=== PATIENT | female | born 2000 | race Hispanic/Latino ===

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

== ENCOUNTER 2019-10-24 18:30 | Emergency (ER) | payer OTHER ==
[~2019-10-24] VITALS: Ht 162.6 cm; Wt 71.6 kg
[2019-10-24] MEDS ORDERED: LOES1TAB12 PO (18:35)
[2019-10-24] MEDS ORDERED: ONDANSETRON 4MG/2ML VIAL (J2405) IV ONE (19:00)
[2019-10-24] MEDS ORDERED: NS 1,000 ML IV ONE (19:00)
[2019-10-24 19:15] LABS: BASO % 0.3 % (0.0-1.0); EOS # 0.1 10^3/uL (0.0-0.5); EOS % 1.5 % (0.0-3.0); HEMATOCRIT 38.5 % (36.0-47.0); HEMOGLOBIN 13.2 g/dl (12.0-15.5); LYMPH # 1.6 10^3/uL (1.5-5.0); LYMPH % 16.7 % (24.0-44.0); MEAN CORPUSCULAR HEMOGLOBIN 31.5 pg (27.0-33.0); MEAN CORPUSCULAR HGB CONC 34.3 g/dl (32.0-36.5); MEAN CORPUSCULAR VOLUME 91.9 fl (80.0-96.0); MONO # 0.5 10^3/uL (0.0-0.8); MONO % 5.6 % (0.0-5.0); NEUTROPHILS # 7.2 10^3/uL (1.5-8.5); NEUTROPHILS % 75.6 % (36.0-66.0); PLATELET COUNT, AUTOMATED 237 10^3/uL (150-450); RED BLOOD COUNT 4.19 10^6/uL (4.00-5.40); WHITE BLOOD COUNT 9.5 10^3/uL (4.0-10.0)
[2019-10-24 19:57] LABS: ALBUMIN 3.7 GM/DL (3.2-5.2); ALT/SGPT 64 U/L (12-78); BILIRUBIN,DIRECT 0.2 MG/DL (0.0-0.2); BILIRUBIN,TOTAL 0.6 MG/DL (0.2-1.0); BLOOD UREA NITROGEN 8 MG/DL (7-18); CARBON DIOXIDE LEVEL 25 MEQ/L (21-32); CHLORIDE LEVEL 103 MEQ/L (98-107); CREATININE FOR GFR 0.74 MG/DL (0.55-1.30); GLUCOSE, FASTING 99 MG/DL (70-100); HCG, SERUM QUANTITATIVE 50272 MIU/ML; LIPASE 98 U/L (73-393); POTASSIUM SERUM 3.9 MEQ/L (3.5-5.1); SODIUM LEVEL 137 MEQ/L (136-145); TOTAL PROTEIN 7.4 GM/DL (6.4-8.2)
--- NOTE | 2019-10-24 20:38 | REPVR ---
PROCEDURE INFORMATION: Exam: US First Trimester, Transabdominal Exam date and time: 10/24/2019 8:23 PM Age: 19 years old Clinical indication: Other: Abd pain; Gestational age or lmp: 6w 2d; ; Additional info: Low abd pain, positive hcg TECHNIQUE: Imaging protocol: Real-time transabdominal obstetrical ultrasound of the maternal pelvis and a first trimester , less than 14 weeks 0 days, with image documentation. COMPARISON: No relevant prior studies available. FINDINGS: GESTATION: Gestation: Single intrauterine gestation. Heart rate: heart rate of 114 bpm. Placenta: Unremarkable. No subchorionic bleed. Amniotic fluid: Amniotic and coelomic fluid are normal for gestational age. BIOMETRY: Estimated gestational age: Estimated gestational age of 6 weeks and 2 days. The CRL measures 5 mm. MATERNAL: Uterus: Unremarkable. Cervix: Unremarkable. Right adnexa: Right ovarian cyst likely a corpus luteal cyst. Right ovary measures 3x 3.9 x 2.6 cm. Normal vascular flow to the right ovary. Left adnexa: Unremarkable. Intraperitoneal: No intraperitoneal free fluid. IMPRESSION: Single intrauterine gestation with positive heart rate . Estimated gestational age of 6 weeks and 2 days. Electronically signed by: Noble Amaya On 10/24/2019 20:37:38 PM
[2019-10-24] MEDS ORDERED: TAMSULOSIN 0.4 MG CAP PO ONE (21:30)
[2019-10-24 21:39] VITALS: BP 106/65
== END 2019-10-24 21:45 | disposition home or self-care (01) ==
LOC: M ED 18:30
DX: Z32.01 Encounter for pregnancy test, result positive (principal); O26.891 Other specified pregnancy related conditions, first trimester; Z3A.01 Less than 8 weeks gestation of pregnancy; Z79.3 Long term (current) use of hormonal contraceptives
CPT/HCPCS: 76801; 80048; 80076; 81001; 83690; 84702; 85025; 86901; 87086; 93976; 96361; 96374; 99284; J2405

== ENCOUNTER 2020-09-06 02:06 | Day surgery (SDC) | payer OTHER ==
[~2020-09-06] VITALS: Ht 162.6 cm; Wt 80.5 kg
[~2020-09-06 02:06] MED LIST: LOES1TAB12 PO
[2020-09-06] MEDS ORDERED: ONDANSETRON 4MG/2ML VIAL IV ONE (03:00)
--- NOTE | 2020-09-06 03:56 | REPVR ---
PROCEDURE INFORMATION: Exam: US Abdomen, Limited; Right Upper Quadrant Exam date and time: 09/06/2020 3:12 AM Age: 20 years old Clinical indication: Abdominal pain; Epigastric; Additional info: Ruq pain TECHNIQUE: Imaging protocol: US abdomen. Real time ultrasound with image documentation. Limited exam focused on the right upper quadrant. COMPARISON: No relevant prior studies available. FINDINGS: Liver: The liver demonstrates no focal defects. Gallbladder: The gallbladder demonstrates no stones and no wall thickening measuring 2 mm. There is a negative sono Lan's sign. Common bile duct: The CBD measures 3 mm. Pancreas: The pancreas is normal. Right kidney: The right kidney measures 10.5 cm and demonstrates no hydronephrosis. IMPRESSION: Negative right upper quadrant sonogram. Electronically signed by: Rocco Bone On 09/06/2020 03:55:24 AM
[2020-09-06] MEDS ORDERED: ISOVUE-370 76% 100ML VIAL As Ordered ONE (05:51)
[2020-09-06 06:23] LABS: BASO % 0.1 % (0.0-1.0); HEMATOCRIT 38.8 % (36.0-47.0); HEMOGLOBIN 12.6 g/dl (12.0-15.5); LYMPH # 1.1 10^3/uL (1.5-5.0); MEAN CORPUSCULAR HEMOGLOBIN 29.5 pg (27.0-33.0); MEAN CORPUSCULAR HGB CONC 32.5 g/dl (32.0-36.5); MEAN CORPUSCULAR VOLUME 90.9 fl (80.0-96.0); MONO # 0.4 10^3/uL (0.0-0.8); MONO % 2.3 % (0.0-5.0); NEUTROPHILS # 14.1 10^3/uL (1.5-8.5); NEUTROPHILS % 90.2 % (36.0-66.0); PLATELET COUNT, AUTOMATED 268 10^3/uL (150-450); RED BLOOD COUNT 4.27 10^6/uL (4.00-5.40); WHITE BLOOD COUNT 15.6 10^3/uL (4.0-10.0)
[2020-09-06 06:54] LABS: ALBUMIN 3.4 GM/DL (3.2-5.2); ALT/SGPT 28 U/L (12-78); BILIRUBIN,DIRECT 0.2 MG/DL (0.0-0.2); BILIRUBIN,TOTAL 0.5 MG/DL (0.2-1.0); BLOOD UREA NITROGEN 10 MG/DL (7-18); CALCIUM LEVEL 9.2 MG/DL (8.5-10.1); CARBON DIOXIDE LEVEL 30 MEQ/L (21-32); CHLORIDE LEVEL 105 MEQ/L (98-107); CREATININE FOR GFR 0.79 MG/DL (0.55-1.30); GLOMERULAR FILTRATION RATE > 60.0 (>60); GLUCOSE, FASTING 112 MG/DL (70-100); LIPASE 91 U/L (73-393); POTASSIUM SERUM 4.4 MEQ/L (3.5-5.1); SODIUM LEVEL 139 MEQ/L (136-145); TOTAL PROTEIN 7.3 GM/DL (6.4-8.2)
--- NOTE | 2020-09-06 07:38 | REPVR ---
PROCEDURE INFORMATION: Exam: CT Abdomen And Pelvis With Contrast Exam date and time: 09/06/2020 5:48 AM Age: 20 years old Clinical indication: Abdominal pain; Localized; Right lower quadrant (rlq); Additional info: Rlq ttp, R/O appy TECHNIQUE: Imaging protocol: Computed tomography of the abdomen and pelvis with contrast. Radiation optimization: All CT scans at this facility use at least one of these dose optimization techniques: automated exposure control; mA and/or kV adjustment per patient size (includes targeted exams where dose is matched to clinical indication); or iterative reconstruction. Contrast material: ISO; Contrast volume: 100 ml; Contrast route: INTRAVENOUS (IV); COMPARISON: GALLBLADDER US 09/06/2020 3:03 AM FINDINGS: Liver: Normal. No mass. Gallbladder and bile ducts: Normal. No calcified stones. No ductal dilation. Pancreas: Normal. No ductal dilation. Spleen: Normal. No splenomegaly. Adrenal glands: Normal. No mass. Kidneys and ureters: Normal. No hydronephrosis. Stomach and bowel: Unremarkable. No obstruction. No mucosal thickening. Appendix: The appendix is enlarged measuring up to 1 cm demonstrating wall thickening and hyperemia with surrounding inflammation. Intraperitoneal space: There is trace right pelvic fluid on axial image 114 either physiologic or reactive. Vasculature: Unremarkable. No abdominal aortic aneurysm. Lymph nodes: Multiple prominent right lower quadrant reactive lymph nodes are seen. Urinary bladder: Unremarkable as visualized. Reproductive: The uterus is retroverted and appear unremarkable. Bones/joints: Unremarkable. No acute fracture. Soft tissues: Unremarkable. IMPRESSION: 1. Acute appendicitis with reactive adenopathy. No evidence of perforation or abscess formation at this time. 2. Small amount of fluid in the right hemipelvis could be physiologic or reactive. Electronically signed by: Juan Gonzalez On 09/06/2020 07:37:34 AM
[2020-09-06] MEDS ORDERED: NS 1,000 ML IV ONE (07:45)
[2020-09-06] MEDS ORDERED: PIPERACILLIN/TAZOBACTAM SOD 4.5 GM in D5W MINI-BAG PLUS 50 ML IV ONE (07:45)
[2020-09-06] MEDS ORDERED: BUPIVACAINE/EPIN 0.25% 30 ML VIAL As Ordered ONE (08:14)
[2020-09-06 08:49] LABS: RSV AMPLIFICATION NEGATIVE (NEGATIVE)
[2020-09-06] MEDS ORDERED: MIDAZOLAM INJ 2MG/2ML VIAL (J2250 PER 1MG) As Ordered ONE (09:54)
[2020-09-06] MEDS ORDERED: ROCURONIUM BROMIDE 50 MG/5 ML VIAL As Ordered ONE (09:54)
[2020-09-06] MEDS ORDERED: LIDOCAINE 2% 100MG/5ML SDV (FOR ANES.) As Ordered ONE (09:54)
[2020-09-06] MEDS ORDERED: propofoL 200 MG/20 ML VIAL As Ordered ONE (09:54)
[2020-09-06] MEDS ORDERED: fentaNYL 250 MCG/5 ML INJECTION (J3010) As Ordered ONE (09:54)
[2020-09-06] MEDS ORDERED: NEOSTIGMINE 10MG/10ML VIAL (J2710 PER 0.5MG) As Ordered ONE (09:54)
[2020-09-06] MEDS ORDERED: dexameTHASONE 4 MG/ML 1ML VIAL (J1100 PER 1MG) As Ordered ONE (09:54)
[2020-09-06] MEDS ORDERED: ACETAMINOPHEN 1000MG 100ML IV BTL (OFIRMEV) (J0131 PER 10MG) As Ordered ONE (09:54)
[2020-09-06] MEDS ORDERED: GLYCOPYRROLATE INJ 0.2 MG/ML 2 ML VIAL As Ordered ONE (09:54)
[2020-09-06] MEDS ORDERED: KETOROLAC 60MG 2ML VIAL As Ordered ONE (09:54)
[2020-09-06] MEDS ORDERED: ONDANSETRON 4MG/2ML VIAL As Ordered ONE (09:54)
--- NOTE | 2020-09-06 10:21 | HPE ---
HISTORY AND PHYSICAL DATE: 09/06/20 CHIEF COMPLAINT: Abdominal pain. HISTORY OF PRESENT ILLNESS: The patient is a 20-year-old female who started with right lower quadrant abdominal pain yesterday. At first she thought that it was gas pains; however, overnight it did not improve. She came in, in the middle of the night. Work-up shows that she has an acute appendicitis therefore I was called to evaluate. She is comfortable now, her pain is controlled. No nausea or vomiting. No fevers or chills. No change in bowel movements. No recent travel or trauma to the abdomen. No other complaints. PAST MEDICAL HISTORY: Negative. PAST SURGICAL HISTORY: Negative. ALLERGIES: None. HOME MEDICATIONS: Please see Med Rec. SOCIAL HISTORY: Denies drugs, alcohol or tobacco. FAMILY HISTORY: Noncontributory. REVIEW OF SYSTEMS: Pertinent positives as per the HPI. PHYSICAL EXAMINATION: General: Patient is A&O times 3, in no acute distress. Vital signs: Temperature 97.8, pulse 104, respiratory rate 18, blood pressure 120/88, pulse ox 100% on room air. HEENT: Pupils equal, round and reactive to light and accommodation. Heart: S1 and S2 regular rate and rhythm. Lungs: Clear to auscultation bilaterally. Abdomen: Soft, slight tenderness to palpation in the right lower quadrant only, localized guarding, no rigidity. Extremities: No clubbing, cyanosis or edema. LABORATORY DATA: White count 15.6, hemoglobin 12.6, platelets 268. COVID is negative. Potassium 4.4, creatinine 0.79. IMAGING: CT abdomen and pelvis was completed and showed an acute appendicitis with reactive adenopathy, no evidence of perforation or abscess formation at this time, a small amount of fluid in the right hemipelvis likely reactive. ASSESSMENT AND PLAN: Patient is a 20-year-old female with acute appendicitis. Recommendation is to proceed with a laparoscopic appendectomy. Post-operatively if everything goes as planned we will discharge her home this afternoon and she will follow up with me in the office in 2 weeks. If there is any type of perforation intraoperatively then I will keep her on I.V. antibiotics overnight and plan on discharge in the morning.
[2020-09-06] MEDS ORDERED: HYDR-4571 PO (10:32)
--- NOTE | 2020-09-06 10:50 | RO ---
OPERATIVE NOTE DATE OF OPERATION: 09/06/2020 PREOPERATIVE DIAGNOSIS: Appendicitis. POSTOPERATIVE DIAGNOSIS: Appendicitis. PROCEDURE: Laparoscopic appendectomy. SURGEON: Fantasma Sterling DO PRE K TEACHER: None. ANESTHESIA: General. EBL: 5. COMPLICATIONS: None. INDICATIONS FOR PROCEDURE: The patient is a 20-year-old female who presents with right lower quadrant pain and found to have acute appendicitis on CT in the emergency room. Recommendation was to proceed with laparoscopic appendectomy. Risks and benefits of procedure not limited to but including bleeding, infection, hernia formation, damage to surrounding structures, need for further surgery was discussed in detail with the patient and informed consent was obtained. Procedure was planned. DESCRIPTION OF PROCEDURE: The patient was brought back to operating room 3. After sufficient sedation the abdomen was sterilely prepped and draped. Time out was done confirming proper patient, proper procedure. Following that a 5 mm incision was made in left upper quadrant, Veress needle was inserted and the abdomen was insufflated to 15 mmHg. Veress needle was then removed and 5 mm Optiview port was used to gain access to the abdomen. Once the abdomen was entered another 8 mm port was placed supraumbilically in the midline, another 5 mm port supraumbilically in the midline. The appendix was identified in the right lower quadrant, it was retrocecal. I was able to dissect it from the retroperitoneum and then dissected through the mesoappendix using the EnSeal. Once the base of the appendix was reached it was ligated with two PDS Endoloops and then amputated easily with EnSeal. The appendix was then placed inside 5 mm Endo Catch bag and brought out through the umbilical port site. The abdomen was desufflated. Skin incisions were closed with 4-0 Vicryl subcuticular sutures. The abdomen was cleaned and dried. Steri-Strips, 4 x 4 and tape were applied. This ended the procedure.
[2020-09-06 11:35] VITALS: BP 116/73
[2020-09-06 11:59] VITALS: BP 104/56
[2020-09-06 12:33] VITALS: BP 102/57
[2020-09-06 13:39] VITALS: BP 120/60
== END 2020-09-06 14:05 | disposition home or self-care (01) ==
LOC: M ED 02:06 → M SDC 08:45 → M PED 11:30 → M SDC 14:05
PROVIDERS: ATTEND Surgery
DX: K35.890 Other acute appendicitis without perforation or gangrene (principal)
CPT/HCPCS: 44970; 74177; 76705; 80048; 80076; 81001; 83690; 84702; 85025; 87040; 87631; 88304; 93041; 96374; 96375; 99284; J0131; J1100; J1885; J2250; J2405; J2543; J2710; J3010; Q9967

== ENCOUNTER 2021-09-09 09:18 | Emergency (ER) | payer OTHER ==
[~2021-09-09] VITALS: Ht 162.6 cm; Wt 79.9 kg
[~2021-09-09 09:18] MED LIST changes: +HYDR-4571 PO
[2021-09-09] MEDS ORDERED: MIRE1IUD IU (09:24)
[2021-09-09] MEDS ORDERED: APAP325T4 PO (09:24)
[2021-09-09] MEDS ORDERED: ACETAMINOPHEN 500 MG TAB PO ONE (12:00)
[2021-09-09 14:00] LABS: GC DNA AMPLIFICATION NEGATIVE (NEGATIVE)
[2021-09-09] MEDS ORDERED: NS 1,000 ML IV ONE (14:00)
[2021-09-09 14:36] LABS: BASO % 0.2 % (0.0-1.0); HEMOGLOBIN 13.3 g/dl (12.0-15.5); LYMPH # 0.7 10^3/uL (1.5-5.0); LYMPH % 4.6 % (24.0-44.0); MEAN CORPUSCULAR HEMOGLOBIN 30.4 pg (27.0-33.0); MEAN CORPUSCULAR HGB CONC 34.1 g/dl (32.0-36.5); MEAN CORPUSCULAR VOLUME 89.2 fl (80.0-96.0); MONO # 0.7 10^3/uL (0.0-0.8); MONO % 4.7 % (2.0-8.0); NEUTROPHILS % 90.1 % (36.0-66.0); PLATELET COUNT, AUTOMATED 183 10^3/uL (150-450); RED BLOOD COUNT 4.37 10^6/uL (4.00-5.40); WHITE BLOOD COUNT 15.6 10^3/uL (4.0-10.0)
[2021-09-09] MEDS ORDERED: ISOVUE-370 76% 100ML VIAL As Ordered ONE (15:01)
[2021-09-09 16:02] LABS: ALBUMIN 2.5 GM/DL (3.2-5.2); ALT/SGPT 16 U/L (12-78); BILIRUBIN,DIRECT < 0.1 MG/DL (0.0-0.2); BILIRUBIN,TOTAL 0.4 MG/DL (0.2-1.0); LIPASE 43 U/L (73-393); TOTAL PROTEIN 5.5 GM/DL (6.4-8.2)
[2021-09-09] MEDS ORDERED: ONDA4TAB6 PO ×3 (16:33→19:50)
[2021-09-09] MEDS ORDERED: METR-265 PO ×3 (16:33→19:50)
[2021-09-09] MEDS ORDERED: CIPR-249 PO ×3 (16:33→19:50)
[2021-09-09 16:38] VITALS: BP 126/72
== END 2021-09-09 17:03 | disposition home or self-care (01) ==
LOC: M ED 09:18
DX: K51.00 Ulcerative (chronic) pancolitis without complications (principal); N72 Inflammatory disease of cervix uteri; U07.1 COVID-19; Z97.5 Presence of (intrauterine) contraceptive device; N85.8 Other specified noninflammatory disorders of uterus
CPT/HCPCS: 74177; 76830; 76856; 80047; 80076; 81001; 83690; 85025; 87210; 87808; 87810; 87850; 93976; 96360; 96361; 99284; Q9967

== ENCOUNTER 2022-10-06 06:45 | Emergency (ER) | payer OTHER ==
[~2022-10-06] VITALS: Ht 165.1 cm; Wt 76.6 kg
[~2022-10-06 06:45] MED LIST changes: +APAP325T4 PO; +CIPR-249 PO; +METR-265 PO; +MIRE1IUD IU; +ONDA4TAB6 PO
[2022-10-06] MEDS ORDERED: NS 1,000 ML IV ONE (07:45)
[2022-10-06] MEDS ORDERED: SUCRALFATE 1 GM TAB PO ONE (07:45)
[2022-10-06] MEDS ORDERED: ONDANSETRON 4MG 2ML VIAL IV ONE (07:45)
[2022-10-06] MEDS ORDERED: MORPHINE 4 MG/ML 1ML VIAL IV ONE (07:45)
[2022-10-06] MEDS ORDERED: GI COCKTAIL 50ML BTL(HYOSCYAMINE/MAALOX/LIDOCAINE VISCOUS)(1:3:1) PO ONE (07:45)
[2022-10-06 07:50] LABS: BASO % 0.1 % (0.0-1.0); EOS % 0.3 % (0.0-3.0); HEMATOCRIT 43.7 % (36.0-47.0); HEMOGLOBIN 14.7 g/dl (12.0-15.5); LYMPH # 0.3 10^3/uL (1.5-5.0); LYMPH % 2.3 % (24.0-44.0); MEAN CORPUSCULAR HEMOGLOBIN 30.5 pg (27.0-33.0); MEAN CORPUSCULAR HGB CONC 33.6 g/dl (32.0-36.5); MEAN CORPUSCULAR VOLUME 90.7 fl (80.0-96.0); MONO # 0.6 10^3/uL (0.0-0.8); MONO % 4.2 % (2.0-8.0); NEUTROPHILS # 13.5 10^3/uL (1.5-8.5); NEUTROPHILS % 92.6 % (36.0-66.0); PLATELET COUNT, AUTOMATED 248 10^3/uL (150-450); RED BLOOD COUNT 4.82 10^6/uL (4.00-5.40); WHITE BLOOD COUNT 14.6 10^3/uL (4.0-10.0)
[2022-10-06 08:11] LABS: LIPASE 26 U/L (12-53)
[2022-10-06 08:19] LABS: HCG, SERUM QUALITATIVE NEGATIVE (NEGATIVE)
[2022-10-06 09:20] LABS: ALBUMIN 4.1 G/DL (3.2-5.2); ALKALINE PHOSPHATASE 71 U/L (46-116); ALT/SGPT 24 U/L (7.0-40); AST/SGOT 22 U/L (<34); BILIRUBIN,DIRECT 0.3 MG/DL (<0.4); BILIRUBIN,TOTAL 1.1 MG/DL (0.3-1.2); BLOOD UREA NITROGEN 14 MG/DL (9-23); CALCIUM LEVEL 8.9 MG/DL (8.5-10.1); CARBON DIOXIDE LEVEL 25 MMOL/L (20-31); CHLORIDE LEVEL 104 MMOL/L (98-107); CREATININE FOR GFR 0.77 MG/DL (0.55-1.30); GLOMERULAR FILTRATION RATE > 60.0 (>60); GLUCOSE, FASTING 110 MG/DL (60-100); POTASSIUM SERUM 4.1 MMOL/L (3.5-5.1); SODIUM LEVEL 138 MMOL/L (136-145); TOTAL PROTEIN 7.5 G/DL (5.7-8.2)
[2022-10-06] MEDS ORDERED: ISOVUE-370 76% 100ML VIAL As Ordered ONE (09:45)
[2022-10-06 10:50] VITALS: BP 115/65
[2022-10-06] MEDS ORDERED: DICY10CA13 PO (11:05)
[2022-10-06] MEDS ORDERED: ONDA4TAB6 PO (11:05)
== END 2022-10-06 11:27 | disposition home or self-care (01) ==
LOC: M ED 06:45
DX: R10.9 Unspecified abdominal pain (principal); R11.2 Nausea with vomiting, unspecified; R19.7 Diarrhea, unspecified; Z97.5 Presence of (intrauterine) contraceptive device
CPT/HCPCS: 74177; 80048; 80076; 83605; 83690; 84703; 85025; 96361; 96374; 96375; 99284; J2270; J2405

== ENCOUNTER → 2022-10-07 | Outpatient (REF) | payer OTHER ==
[~2022-10-07] MED LIST changes: +DICY10CA13 PO
== END ==
LOC: M LAB REF 11:45
PROVIDERS: ATTEND Internal Medicine
DX: R19.7 Diarrhea, unspecified (principal)